=== PATIENT | female | born 1970 | race Caucasian/White ===

== ENCOUNTER 2016-11-25 08:48 | Day surgery (SDC) | payer OTHER ==
[2016-11-25] MEDS ORDERED: FENTANYL 100MCG/2ML SOL ONE (09:32)
[2016-11-25] MEDS ORDERED: PROPOFOL 10 MG/ML EMU IV ONE (09:32)
[2016-11-25 10:47] VITALS: BP 122/87; PULSE 73; RESP 20; TEMP 97.9; O2SAT 95
== END 2016-11-25 10:55 | disposition home or self-care (01) | DRG 951 ==
LOC: SURG 08:48
PROVIDERS: ATTEND Surgery
DX: Z12.11 Encounter for screening for malignant neoplasm of colon (principal); Z80.0 Family history of malignant neoplasm of digestive organs
CPT/HCPCS: J2001; J3010; J2704